=== PATIENT | male | born 1990 | race Caucasian/White ===

== ENCOUNTER 2018-07-21 12:48 | Emergency (ER) | payer SELFPAY ==
[2018-07-21 13:17] VITALS: RESP 18; O2SAT 99
[2018-07-21 15:05] LABS: BASO % 0.3 % (0.0-2.0); EOS % 0.1 % (0.0-4.0); LYMPH # 1.2 K/uL (1.0-4.3); LYMPH % 18.7 % (20.0-40.0); MEAN CELL VOLUME 91.3 fL (80.0-94.0); MEAN CORPUSCULAR HEMOGLOBIN 29.4 pg (27.0-31.0); MEAN CORPUSCULAR HGB CONC 32.2 g/dL (33.0-37.0); MEAN PLATELET VOLUME 9.8 fL (7.2-11.7); MONO # 0.3 K/uL (0.0-0.8); MONO % 4.6 % (0.0-10.0); NEUT % 76.3 % (50.0-75.0); RBC 4.41 Mil/uL (4.40-5.90); RED CELL DISTRIBUTION WIDTH 13.3 % (11.5-14.5); WHITE BLOOD COUNT 6.5 K/uL (4.8-10.8)
[2018-07-21 15:31] LABS: BLOOD UREA NITROGEN 10 mg/dL (9-20); CALCIUM 9.5 mg/dl (8.6-10.4); GFR NON-AFRICAN AMERICAN > 60
[2018-07-21] MEDS ORDERED: Iodixanol 320 MG/ML 100 ML BOTTLE IV ONE ×2 (15:50→16:25)
--- NOTE | 2018-07-21 16:31 | C.PDOC ---
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 Patient states that he was visiting his girlfriend and that they were going thr ough a break up. He states that the discussion became heated and that he began feeling anxious and depressed. Patient also states that for the past week his left arm has been swelling intermittently and it has been more painful than normal. Patient has no history of past PE. He describes the chest pain as sharp, mid-sternal, and non-radiating. Patient denies nausea, vomiting, palpitations, diaphoresis, fever, and chills. Time Seen by Provider: 07/21/18 14:36 Chief Complaint (Nursing): Chest Pain History Per: Patient History/Exam Limitations: no limitations Onset/Duration Of Symptoms: Hrs (3) Current Symptoms Are (Timing): Still Present Quality: Sharp, "Pain" Associated Symptoms: denies: Nausea, Dyspnea, Diaphoresis, Syncope Modifying Factors: None Exacerbating Factors: None Alleviating Factors: None Past Medical History Reviewed: Historical Data, Nursing Documentation, Vital Signs Vital Signs: Last Vital Signs Temp 99 F 07/21/18 13:11 Pulse 66 07/21/18 13:11 Resp 18 07/21/18 13:11 BP 120/69 07/21/18 13:11 Pulse Ox 99 07/21/18 13:11 - Medical History PMH: Anxiety, Asthma, Depression, Deep Vein Thrombosis (left arm), Pulmonary Embolism Other Surgeries: thrombectomy Family History: States: Unknown Family Hx - Social History Hx Alcohol Use: No Hx Substance Use: Yes - Immunization History Hx Tetanus Toxoid Vaccination: No Hx Influenza Vaccination: No Hx Pneumococcal Vaccination: No Review Of Systems Constitutional: Negative for: Fever, Chills, Weakness Cardiovascular: Positive for: Chest Pain. Negative for: Palpitations Respiratory: Positive for: Shortness of Breath. Negative for: Cough Gastrointestinal: Negative for: Nausea, Vomiting Neurological: Negative for: Weakness, Numbness, Dizziness Psych: Positive for: Anxiety, Depression Physical Exam - Physical Exam Appears: No Acute Distress, Other (tearful, normal vitals) Skin: Normal Color, Warm, Dry Head: Atraumatic, Normacephalic Eye(s): bilateral: Normal Inspection, PERRL, EOMI Oral Mucosa: Moist Neck: Normal ROM, Supple Cardiovascular: Rhythm Regular, No Murmur Respiratory: No Accessory Muscle Use, No Rales, No Rhonchi, No Wheezing Gastrointestinal/Abdominal: Soft, No Tenderness Extremity: Tenderness (left bicep and left chest wall), Capillary Refill (<2 seconds), No Swelling (to the left upper extremity) Extremity: Bilateral: Atraumatic, Normal Color And Temperature, Normal ROM Neurological/Psych: Oriented x3, Normal Speech, Normal Cognition ED Course And Treatment - Laboratory Results Result Diagrams: 07/21/18 14:59 07/21/18 14:59 Lab Results: D-Dimer, Quantitative 224 ng/mlDDU (0-243) 07/21/18 14:59 Troponin I < 0.0120 ng/mL (0.00-0.120) 07/21/18 14:59 O2 Sat by Pulse Oximetry: 99 (in RA) - CT Scan/US CTA Chest Other Rad Studies (CT/US): Interpreted By Me, Read By Radiologist CT/US Interpretation: Accession No. : [id number]. Patient Name / ID : DIRK WHITFIELD / [id number]. Exam Date : 07/21/2018 16:13:16 ( Approved ). Study Comment : Sex / Age : M / 27Y. Creator : Eliza Jean. Dictator : Oma Daniel. Actuarial Technician : Director Food Safety : Oma Daniel. Approver2 : Report Date : 07/21/2018 16:34:36. My Comment : . Date of service: 07/21/2018. PROCEDURE: CT Chest with contrast (Pulmonary Angiogram). HISTORY: CP, SOB, H/o DVT. COMPARISON: None available. TECHNIQUE: Axial computed tomography images were obtained of the chest in the pulmonary arterial phase of enhancement. Coronal and sagittal reformatted images were created and reviewed. Intravenous contrast dose: 100 cc Visipaque 320. At the direction of the a monitoring radiologist additional 45 mL of Visipaque 320 for rescanning likely to better improve vascular enhancement was performed. Radiation dose: Total exam DLP = 603 mGy- cm. This CT exam was performed using one or more of the following dose reduction techniques: Automated exposure control, adjustment of the mA and/or kV according to patient size, and/or use of iterative reconstruction technique. FINDINGS: PULMONARY ARTERIES: Unremarkable. No pulmonary embolism. AORTA: No acute findings. No thoracic aortic aneurysm. No aortic atherosclerotic calcification or mural plaque present. LUNGS: Right inferolateral thin bandlike pleural thickening and/or scarring and/or trace accessory perifissural thickening here is noted. PLEURAL SPACES: No significant effusion or pneumothorax. HEART: Unremarkable. No cardiomegaly. No significant pericardial effusion. LYMPH NODES: No lymphadenopathy. BONES, CHEST WALL: Unremarkable. No fracture or destructive lesion. OTHER FINDINGS: Unremarkable. IMPRESSION: . No pulmonary embolus. No dissection. Subsegmental atelectasis and/or scarring and/or accessory mild perifissural thickening at the right lung base incidentally noted. Medical Decision Making Medical Decision Making: Impression: 27 year old male presents to ED with complaint of chest pain and SOB since this afternoon. Plan: CTA chest EKG BMP troponin d-dimer Xanax PO MDM: Patient with previous DVT now with chest pain and SOB Well's criteria score of 4.5 for singular symptom of DVT and previous diagnosis of DVT CTA chest ordered to r/o PE Cardiac work up including troponin ordered Xanax for anxiety 1700 Labs unremarkable with undetectable Troponin CT shows no PE, disection, or infection. Pt feeling better and CP and SOB have resolved. Pt to be discharged home. Will follow up with primary doctors in [facility] and advised to seek psychiatric treatment if symptoms continue. NO SI/HI. Disposition - Disposition Disposition: HOME/ ROUTINE Disposition Time: 16:55 Condition: IMPROVED Additional Instructions: Follow up with primary medical doctors. Seek psychiatric care if depression or anxiety continue. Instructions: Chest Pain (DC) Forms: [facility] (Setswana), Work Excuse Print Language: GERMAN - Clinical Impression Clinical Impression: Chest pain - Scribe Statement The provider has reviewed the documentation as recorded by the Scribe (Michelle Plunkett) All medical record entries made by the Scribe were at my direction and personally dictated by me. I have reviewed the chart and agree that the record accurately reflects my personal performance of the history, physical exam, medical decision making, and the department course for this patient. I have also personally directed, reviewed, and agree with the discharge instructions and disposition.
--- NOTE | 2018-07-21 16:46 | CT ---
Date of service: 07/21/2018 PROCEDURE: CT Chest with contrast (Pulmonary Angiogram) HISTORY: CP, SOB, H/o DVT COMPARISON: None available. TECHNIQUE: Axial computed tomography images were obtained of the chest in the pulmonary arterial phase of enhancement. Coronal and sagittal reformatted images were created and reviewed. Intravenous contrast dose: 100 cc Visipaque 320. At the direction of the a monitoring radiologist additional 45 mL of Visipaque 320 for rescanning likely to better improve vascular enhancement was performed. Radiation dose: Total exam DLP = 603 mGy-cm. This CT exam was performed using one or more of the following dose reduction techniques: Automated exposure control, adjustment of the mA and/or kV according to patient size, and/or use of iterative reconstruction technique. FINDINGS: PULMONARY ARTERIES: Unremarkable. No pulmonary embolism. AORTA: No acute findings. No thoracic aortic aneurysm. No aortic atherosclerotic calcification or mural plaque present. LUNGS: Right inferolateral thin bandlike pleural thickening and/or scarring and/or trace accessory perifissural thickening here is noted. PLEURAL SPACES: No significant effusion or pneumothorax HEART: Unremarkable. No cardiomegaly. No significant pericardial effusion. LYMPH NODES: No lymphadenopathy. BONES, CHEST WALL: Unremarkable. No fracture or destructive lesion OTHER FINDINGS: Unremarkable. IMPRESSION: . No pulmonary embolus. No dissection. Subsegmental atelectasis and/or scarring and/or accessory mild perifissural thickening at the right lung base incidentally noted.
[2018-07-21 17:37] VITALS: BP 101/40; PULSE 70; TEMP 98.1
--- NOTE | 2018-07-22 18:58 | CARD ---
APPROVED REPORT Date of service: 07/21/2018 EKG Measurement Heart [id number] <Conclusion> Sinus bradycardia Otherwise normal ECG
== END 2018-07-21 17:34 | disposition home or self-care (01) ==
LOC: C.ER 12:48
DX: R07.9 Chest pain, unspecified (principal)
CPT/HCPCS: 71275; 80048; 84484; 85025; 85378; 93005; 99285; Q9967